=== PATIENT | female | born 1970 | race Caucasian/White ===

== ENCOUNTER 2022-04-29 08:16 | Day surgery (SDC) | payer BC ==
[~2022-04-29 08:16] MED LIST: Lactated Ringers 1,000 ML IV SCH
[2022-04-29] MEDS ORDERED: Propofol 200 MG/20 ML SDV ONE ×3 (08:18→10:06)
== END 2022-04-29 11:05 | disposition home or self-care (01) ==
LOC: MW.SDS 08:16
PROVIDERS: ATTEND Surgery
DX: Z12.11 Encounter for screening for malignant neoplasm of colon (principal); D12.2 Benign neoplasm of ascending colon; D12.0 Benign neoplasm of cecum; D12.3 Benign neoplasm of transverse colon; K62.1 Rectal polyp; K57.30 Diverticulosis of large intestine without perforation or abscess without bleeding; E55.9 Vitamin D deficiency, unspecified; E66.9 Obesity, unspecified; J30.9 Allergic rhinitis, unspecified; Z79.899 Other long term (current) drug therapy; Z68.35 Body mass index [BMI] 35.0-35.9, adult
CPT/HCPCS: 45380; 45385; 81025; J2704; J7120

== ENCOUNTER → 2024-01-24 | Day surgery (SDC) | payer BC ==
[~2024-01-24] MED LIST changes: +Albuterol 0.083% 2.5 MG/3 ML Neb Soln NEB PRN; +Albuterol 8 GM Inhaler ONE; +Bupivacaine 0.5% 30 ML SDV ONE; +Dexamethasone 4 MG/ML 5 ML MDV ONE; +HYDROmorphone 1 MG/ML Syringe IVPUSH PRN; +Heparin Sodium 5,000 Units/ML Vial ONE; +Ketamine HCL/NACL, ISO-OSM 50 MG/5 ML Syringe ONE; +Lidocaine 2% 5 ML SDV ONE; +Metoclopramide 10 MG/2 ML SDV IVPUSH PRN; +Midazolam 1 MG/ML 2 ML SDV ONE; +Morphine 2 MG/ML SYRINGE IVPUSH PRN; +Naloxone 0.4 MG/ML SDV IVPUSH PRN; +Ondansetron 4 MG/2 ML SDV IVPUSH PRN; +Ondansetron 4 MG/2 ML SDV ONE; +Phenylephrine HCl In 0.9% NaCl 1 MG/10 ML Syringe IVPUSH PRN; +Phenylephrine HCl In 0.9% NaCl 1 MG/10 ML Syringe ONE; +Propofol 200 MG/20 ML SDV ONE; +Rocuronium Bromide 50 MG/5 ML Syringe ONE; +Ropivacaine 0.5% 5 MG/ML 30 ML SDV ONE; +ceFAZolin 1 GM Vial ONE; +ceFAZolin 2 GM Vial ONE; +ceFAZolin 2 GM in Sodium Chloride 0.9% 50 ML IV ONE; +dexmedeTOMIDine HCl 200 MCG/2 ML SDV ONE; +fentaNYL 100 MCG/2 ML SDV ONE; +fentaNYL 250 MCG/5 ML SDV ONE; +fentaNYL 50 MCG/ML SDV IVPUSH PRN; +propofoL 50 ML ONE
[2024-01-24] MEDS: Iopamidol 755 MG/ML 500 ML Multipack Bottle IVPUSH STA (17:03)
[2024-01-24] MEDS: Heparin Sodium 5,000 Units/ML Vial IV ONE (18:15)
[2024-01-24 18:36] LABS: INR 1.1 (0.86-1.11)
[2024-01-24] MEDS: Heparin Sodium/0.45% NaCl 25,000 UNITS/250 ML BAG IV SCH (18:36)
== END | disposition home or self-care (01) ==
LOC: MW.SDS 10:11
PROVIDERS: ATTEND Orthopaedic Surgery
DX: S82.141A Displaced bicondylar fracture of right tibia, initial encounter for closed fracture (principal); X58.XXXA Exposure to other specified factors, initial encounter
CPT/HCPCS: 27536; 36415; 64447; 71275; 85610; 85730; 94002; A9270; J0690; J1100; J1644; J2250; J2371; J2405; J2704; J2795; J3010; Q9967; 01392; J0665; J3490

== ENCOUNTER 2024-09-06 06:49 | Day surgery (SDC) | payer BC ==
[2024-09-06] MEDS ORDERED: Bupivacaine 0.25% 30 ML SDV ONE (07:09)
[2024-09-06] MEDS: Lactated Ringers 1,000 ML IV SCH (07:15)
[2024-09-06] MEDS ORDERED: Propofol 200 MG/20 ML SDV ONE ×3 (07:24→10:55)
[2024-09-06] MEDS ORDERED: propofoL 500 MG/50 ML 50 ML ONE (07:25)
[2024-09-06] MEDS ORDERED: Rocuronium Bromide 50 MG/5 ML Syringe ONE (07:25)
[2024-09-06] MEDS ORDERED: fentaNYL 250 MCG/5 ML SDV ONE ×2 (07:25→08:56)
[2024-09-06] MEDS ORDERED: Dexamethasone 4 MG/ML 5 ML MDV ONE (07:25)
[2024-09-06] MEDS ORDERED: Ondansetron 4 MG/2 ML SDV ONE (07:25)
[2024-09-06] MEDS ORDERED: Ropivacaine 0.5% 5 MG/ML 30 ML SDV ONE (07:32)
[2024-09-06] MEDS ORDERED: Morphine 10 MG/ML SDV ONE (07:33)
[2024-09-06] MEDS ORDERED: Phenylephrine HCl In 0.9% NaCl 1 MG/10 ML Syringe IVPUSH PRN (07:34)
[2024-09-06] MEDS ORDERED: Ondansetron 4 MG/2 ML SDV IVPUSH PRN ×2 (07:34→16:51)
[2024-09-06] MEDS ORDERED: Morphine 2 MG/ML SYRINGE IVPUSH PRN (07:34)
[2024-09-06] MEDS ORDERED: Sodium Chloride 0.9% 20 ML ONE ×2 (07:34)
[2024-09-06] MEDS ORDERED: Metoclopramide 10 MG/2 ML SDV IVPUSH PRN (07:34)
[2024-09-06] MEDS ORDERED: HYDROmorphone 1 MG/ML Syringe IVPUSH PRN (07:34)
[2024-09-06] MEDS ORDERED: Naloxone 0.4 MG/ML SDV IVPUSH PRN (07:34)
[2024-09-06] MEDS ORDERED: Albuterol 0.083% 2.5 MG/3 ML Neb Soln NEB PRN (07:34)
[2024-09-06] MEDS ORDERED: fentaNYL 50 MCG/ML SDV IVPUSH PRN (07:34)
[2024-09-06] MEDS ORDERED: Ketamine HCL/NACL, ISO-OSM 50 MG/5 ML Syringe ONE ×2 (07:37→09:19)
[2024-09-06] MEDS ORDERED: Famotidine 20 MG/2 ML SDV ONE (07:37)
[2024-09-06] MEDS: Acetaminophen 500 MG Tab PO ONE (07:44)
[2024-09-06] MEDS: Heparin Sodium 5,000 Units/ML Vial SUBCUT ONE (07:44)
[2024-09-06] MEDS: Pregabalin 75 MG Cap PO ONE ×2 (07:44→17:24)
[2024-09-06] MEDS ORDERED: Phenylephrine HCl In 0.9% NaCl 1 MG/10 ML Syringe ONE (09:16)
[2024-09-06] MEDS ORDERED: fentaNYL 100 MCG/2 ML SDV ONE (09:43)
[2024-09-06] MEDS ORDERED: HYDROmorphone 1 MG/ML Syringe ONE (11:11)
[2024-09-06] MEDS ORDERED: Acetaminophen/HYDROcodone 325-5 MG Tab PO PRN (16:51)
[2024-09-06] MEDS: ceFAZolin 2 GM in Water For Injection, Sterile 20 ML IVPUSH ONE (17:24)
[2024-09-07] MEDS: Acetaminophen 325 MG Tab PO PRN (06:56)
== END 2024-09-07 09:50 | disposition home or self-care (01) ==
LOC: MW.SDS 06:49 → MW.MS 06:49 → MW.SDS 09-07 09:50
PROVIDERS: ATTEND Surgery
DX: K80.10 Calculus of gallbladder with chronic cholecystitis without obstruction (principal); I10 Essential (primary) hypertension; E66.9 Obesity, unspecified; Z79.01 Long term (current) use of anticoagulants; Z68.33 Body mass index [BMI] 33.0-33.9, adult; Z79.899 Other long term (current) drug therapy
CPT/HCPCS: 00790; 64488; 71045; 71045-26; A9270-GY; J0665; J1100; J1171; J1644; J2272; J2371; J2405; J2704; J2795; J3010; J3490; J7120